=== PATIENT | female | born 1970 | race Caucasian/White ===

== ENCOUNTER → 2022-01-10 10:00 | Outpatient (CLI) | payer OTHER, SELFPAY ==
--- NOTE | 2022-01-10 10:05 | DI.MG.S_ITS ---
BILATERAL DIGITAL SCREENING MAMMOGRAM 3D/2D WITH CAD: 01/10/2022 CLINICAL: Routine screening. Comparison is made to exams dated: 10/21/2013 mammogram, 04/07/2013 mammogram, 04/07/2013, and 04/01/2013 mammogram - [facility]. The tissue of both breasts is heterogeneously dense. This may lower the sensitivity of mammography. Current study was also evaluated with a Computer Aided Detection (CAD) system. There is a stable benign architectural distortion in the left breast in the upper outer quadrant. No significant masses, calcifications, or other findings are seen in either breast. There has been no significant interval change. IMPRESSION: BENIGN There is no mammographic evidence of malignancy. A 1 year screening mammogram is recommended. This exam was interpreted at Station ID: [id number]. NOTE: For mammograms, a report in lay terms will be sent to the patient. Approximately 15% of breast malignancies will not be visualized mammographically. In the management of a palpable breast mass, a negative mammogram must not discourage biopsy of a clinically suspicious lesion. Electronically Signed By: Tj srivastava/edvin:01/10/2022 10:42:52 letter sent: Normal Exam ACR BI-RADS Category 2: Benign Finding(s) 3342F
== END ==
PROVIDERS: Family Provider Chiropractor; Referring Provider Obstetrics & Gynecology; Visit Provider Obstetrics & Gynecology
DX: Z12.31 Encounter for screening mammogram for malignant neoplasm of breast (principal)
CPT/HCPCS: 77063; 77067

== ENCOUNTER 2024-11-01 06:42 | Day surgery (SDC) | payer OTHER, SELFPAY ==
[2024-10-26 15:01] VITALS: BMI 24.4
[2024-11-01] VITALS (18 sets, daily range): BP systolic 103–143; BP diastolic 67–90; PULSE 63–98; RESP 10–20; TEMP 35.5–37.1; O2SAT 90–100; BMI 24.4
--- NOTE | 2024-11-01 | PATH_ITS ---
[facility] Accession Number: [id number] No. of containers..01 Tissue . 01 Material submitted: . uterus - UTERUS WITH BILATERAL FALLOPIAN TUBES AND BILATERAL OVARIES . 01 Diagnosis: UTERUS WITH BILATERAL FALLOPIAN TUBES AND BILATERAL OVARIES, HYSTERECTOMY WITH BILATERAL SALPINGO-OOPHORECTOMY (WEIGHT 42 GRAMS): Cervix with patchy atypia, favor reactive changes. Endocervix with no significant histomorphologic abnormality. Weakly proliferative endometrium; negative for significant atypia. Myometrium involved by adenomyosis. Right fallopian tube, complete cross sections; negative for significant atypia. Right ovary with no significant histomorphologic abnormality. Left fallopian tube, complete cross sections; negative for significant atypia. Left ovary with no significant histomorphologic abnormality. [facility] 11/04/2024 0840 Local . 01 Electronically signed: . Dorina Monroe MD, Pathologist NPI- [id number] . 01 Gross description: . Received in formalin labeled with two patient identifiers and uterus, with bilateral fallopian tubes and bilateral ovaries, is a 5.5 x 3.5 x 2.2 cm (42 grams) uterus with an attached 3.0 x 2.5 x 0.8 cm cervix. The uterine serosa is au-pink and focally hemorrhagic. The right parametrium is inked red, the left parametrium is inked yellow. . The cervix has a 1.5 x 1.1 cm area of slight irregularity and hemorrhage located at the posterior aspect. The remaining cervix is au-white, smooth, glistening, and otherwise unremarkable. There is a 1.1 cm slit-like patent os. The endocervical canal is au, trabeculated, and free of exophytic lesions. The au, smooth, unremarkable myometrium measures up to 1.1 cm in thickness. There is a 3.4 x 1.0 x 0.2 cm au-pink, focally hemorrhagic, smooth, glistening, finely granular endometrial lining. No polyps or masses are appreciated. . The attached right ovary measures 2.4 x 1.1 x 0.5 cm, and has a white lobulated serosal surface. Sectioning of the ovary shows a white, fibrotic, and lobulated homogenous cut surface. The accompanying fimbriated fallopian tube measures 4.8 cm in length and has a 0.3 cm stellate lumen. The left attached ovary measures 2.1 x 0.8 x 0.8 cm and has a white lobulated serosal surface. Sectioning shows a white homogenous fibrotic ovarian parenchyma. The accompanying fimbriated fallopian tube measures 3.8 cm in length by 0.4 cm in diameter, and is sectioned to show a 0.3 cm stellate lumen. . Radiotelegraphist sections are submitted as labeled: A1: Posterior cervix to include granular irregular area. A2: Anterior cervix. A3: Full thickness endomyometrium posterior. A4: Full thickness endomyometrium anterior. A5: Right ovary and fallopian tube to include entire fimbriated end. A6: Left ovary and fallopian tube to include entire fimbriated end. (DC:[id number]/) /JAMIA 11/02/2024 09 Local . 01 Pathologist provided ICD-10: N81.10, N81.4 . 01 CPT . 830439 Specimen Comment: A courtesy copy of this report has been sent to [phone] Performed at: [address] [facility], [place], [place] [id number] MD Justin Cronin MD Phone: [phone]
[2024-11-01] MEDS: ACETAMINOPHEN 325 MG TABLET 975 MG PO (07:22)
[2024-11-01] MEDS: LACTATED RINGERS 1,000 ML 21 ML IV (07:24)
--- NOTE | 2024-11-01 07:28 | PM.PREOP ---
Pre-operative Note Interval Note History & Physical reviewed/Exam performed by Physician: Yes Changes to H&P: No
[2024-11-01] MEDS: SCOPOLAMINE 1 PATCH TOP (07:41)
[2024-11-01] MEDS: CEFAZOLIN 2 GM/100 ML PREMIX 100 ML IV (07:55)
--- NOTE | 2024-11-01 08:21 | SUR.OPER ---
Lithotomy on padded OR bed. Stewardson Pad Positioner under torso. Head on pillow, arms padded and tucked at sides. Legs secured in padded yellow fins stirrups.
[2024-11-01] MEDS: BUPIVACAINE 0.5% W/ EPI (PF) 30 ML VIAL INJ (08:37)
[2024-11-01] MEDS: BUPIVACAINE 0.5% W/ EPI (PF) 10 ML VIAL INJ (08:53)
--- NOTE | 2024-11-01 09:59 | P.OP_ITS ---
Operative Date/Time/Diagnoses Date of procedure: 11/01/24 Time of procedure: 09:59 Pre-op diagnosis: Symptomatic uterovaginal prolapse Post-op diagnosis: same Procedure & Clinicians Procedure: Laparoscopic-assisted vaginal hysterectomy with bilateral salpingo oophorectomy and anterior and posterior repair Same procedure as scheduled: Yes Indications: Symptomatic uterovaginal prolapse Surgeon: Ivana Santoyo Donor Floor Technician: Latonia Barksdale Click Yes if Unassisted: No Anesthesia Type: General Operative Notes Findings: Normal small uterus, normal tubes and ovaries with normal bowel surface, no adhesions, no endometriosis. Cystocele and rectocele with urethral well supported. Closure Type: primary Specimen(s): other (Uterus tubes and ovaries) Applied: catheter (Morris) and other (Vaginal packing) Estimated Blood Loss (mL): 50 Blood products transfused: none Procedure in detail: Operative description: Patient was brought to the operating room where she underwent general anesthesia. [facility]. A check system was reviewed. 2 gram Ancef were in prior to beginning case. Warming was in place. Pulsatile stockings were in place and functional. She was prepped and draped in the usual sterile fashion. A single-tooth tenaculum was placed on the anterior lip of the cervix. The cervix was dilated to #6 Hegar dilator to allow the uterine manipulator to be placed through the cervix into the uterus with the balloon inflated with 3 mL of air. A Morris catheter was placed. Area of the umbilical incision was injected with lidocaine. An incision was made with the scalpel. A 5 mm trocar was placed under direct visualization. No damage with placement of the trocar. 5 mm trochars were placed in the right and left lower quadrant under direct visualization. There did not appear to be any damage with placement of the trochars. The power seal was used to cauterize and cut the infundibulopelvic ligaments bilaterally. Sequential bites were taken down the broad ligament freeing the fallopian tubes and ovaries bilaterally. Bites were taken down the broad ligament and an anterior bladder flap was developed. Next the procedure was switched to a vaginal approach. A single-tooth tenaculum was placed on the posterior lip of the cervix and a posterior colpotomy incision was made. The uterosacral ligaments were clamped, cut, and ligated with 0 Vicryl suture which was used throughout the rest the case unless otherwise indicated. The cervix was circumscribed with the scalpel. The bladder pillars were clamped cut and ligated. Using sharp and blunt dissection the bladder was pushed away from the cervix. Sequential bites were taken up the cardinal and broad ligaments. An anterior colpotomy incision was made and the bladder held away from the uterus. The uterus tubes and ovaries were removed vaginally. Adequate hemostasis noted. A dilute solution of 0.25% Marcaine with epinephrine was injected over this cystocele. An incision was made over the cystocele and the incision dissected laterally. Plicating sutures were made over the cystocele. The incision was closed with 2-0 Vicryl suture. No vaginal tissue was removed. The vaginal cuff was closed with [id number] sutures of 0 Vicryl suture. Next a wedge shaped tissue was taken out of the posterior vaginal opening. The area over the rectocele was injected with a dilute solution of 0.25% Marcaine with epinephrine. An incision was made over the rectocele with the scalpel. The dissection was undertaken laterally. 0 Vicryl suture was used to plicate over the rectocele. A finger was placed in the rectum to be sure there were no sutures placed through the rectal mucosa. The vaginal incision was closed with 2-0 Vicryl suture. No vaginal tissue was removed. The perineal body was built up with interrupted 0 Vicryl sutures. The skin was closed with the 2-0 Vicryl suture. Vaginal packing was placed in the vagina and the Morris left in place. The abdomen was reinsufflated and adequate hemostasis was noted. The CO2 was allowed to escape from the abdomen and the trochars were removed. The skin was closed with 4-0 Monocryl. Counts of instruments and sponges were correct. Patient went to recovery room in good condition. Complications: none Post-operative Condition: stable Disposition: Acute Care Plan for aftercare: Remove vaginal packing and Morris later this evening
--- NOTE | 2024-11-01 11:44 | PC.NURSE ---
Addendum entered by Shannan Georges R.N. 11/01/24 18:53: Patient just voided 100cc of bloody urine out. Did PVR and she had 411cc of urine left in bladder. Called , she states if there is more than a 100cc after she voids in an hour, then we need to put the campo back in. Addendum entered by Shannan Georges R.N. 11/01/24 17:41: into see patient around 1730 and took patients vaginal packing out and campo catheter that had 1000cc of yellow urine. Small amount of dark blood on packing. Patient is comfortable and eating dinner. Addendum entered by Shannan Georges R.N. 11/01/24 15:14: Patient given iv toradol for discomfort, she was also given some pruine juice and is resting comfortably. Original Note: Patients temp was 95.9 when she came up to the floor and we put warm blankets on her and it is up to 96.9 now. Patient is groggy but wakes up. She was experiencing some heaviness in her lower abdominal area, but is groggy and falling asleep easily. Patient has 3 small lap sites that are durmobonded and she has packing in her vagina with a campo catheter inserted. Her is at bedside now. Patients blood sugar 122. She takes semiglutide and meformin, so she is controlled with medication. BS checked once at lunch.
[2024-11-01] MEDS: LACTATED RINGERS 1,000 ML 100 ML IV ×2 (12:26→20:34)
[2024-11-01] MEDS: ACETAMINOPHEN 325 MG TABLET 650 MG PO ×2 (12:27→18:58)
[2024-11-01 13:48] LABS: Estimated Glomerular Filt Rate > 60 mL/min (>60)
[2024-11-01] MEDS: KETOROLAC 30 MG/ML VIAL IV ×2 (14:45→20:29)
--- NOTE | 2024-11-01 17:31 | P.PN_ITS ---
Subjective Subjective Date Patient Seen: 11/01/24 Time Patient Seen: 17:31 Interval history: Patient is status post LAVH/BSO, anterior-posterior repair. Patient denies nausea. Her pain is not under good control but is hopeful once her catheter is removed and she can move around that her back will be less uncomfortable. Exam Vital Signs (past 8 hours): - 11/01/24 10:06 11/01/24 10:10 11/01/24 10:14 Temperature 96.9 F L Pulse Rate 80 84 75 Respiratory Rate 13 14 11 L Blood Pressure 104/67 103/68 120/78 Pulse Oximetry 90 L 90 L 96 Oxygen Delivery Method Nasal Cannula Nasal Cannula Nasal Cannula Oxygen Flow Rate 4 4 4 11/01/24 10:19 11/01/24 10:24 11/01/24 10:29 Temperature Pulse Rate 78 73 72 Respiratory Rate 12 11 L 13 Blood Pressure 119/83 127/88 119/85 Pulse Oximetry 93 95 92 Oxygen Delivery Method Nasal Cannula Nasal Cannula Room Air Oxygen Flow Rate 11/01/24 10:36 11/01/24 10:45 11/01/24 11:05 Temperature 97.1 F L Pulse Rate 98 H 75 69 Respiratory Rate 11 L 10 L 14 Blood Pressure 130/89 132/87 140/85 Pulse Oximetry 93 93 95 Oxygen Delivery Method Room Air Oxygen Flow Rate 0 11/01/24 11:33 11/01/24 11:35 11/01/24 11:37 Temperature 96.9 F L 95.9 F L Pulse Rate 69 63 Respiratory Rate 12 12 Blood Pressure 131/90 143/86 H Pulse Oximetry 96 94 Oxygen Delivery Method Oxygen Flow Rate 0 0 11/01/24 12:05 11/01/24 14:45 11/01/24 15:02 Temperature 97.5 F L 97.5 F L Pulse Rate 68 85 Respiratory Rate 14 14 Blood Pressure 122/77 133/71 Pulse Oximetry 95 97 Oxygen Delivery Method Oxygen Flow Rate 0 0 Oxygen Delivery Method Room Air Oxygen Flow Rate 0 Narrative Exam Narrative: Abdominal incisions intact without bleeding. Morris removed. Vaginal packing removed with some blood but not soaked. Objective Labs 11/01/24 13:30 Labs: Laboratory Results - last 24 hr 11/01/24 13:30 Creatinine 0.95 Estimated GFR > 60 [facility] Medical History (Updated 10/18/24 @ 16:54 by Ivana Santoyo MD) Fractures Essential thrombocytosis Hemorrhoid Felicity's disease Leukemia (~2007) Hypothyroidism Surgical History (Updated 11/01/24 @ 09:54 by Ivana Santoyo MD) Anesthesia History of discectomy (~2014) Family History (Updated 04/02/22 @ 22:53 by Idalia Bull) Father Osteoporosis Bone spur Diabetes mellitus Hyperlipidemia Hypertension Sister Diabetes mellitus Hypertension Thyroid disease Hyperlipidemia Sister Ear problem Social History household members: spouse Smoking Status: Never smoker alcohol intake: current Assessment & Plan Post-op Postoperative Procedures: Procedures Operation Date: 11/01/24 07:45 Actual Procedure Side Surgeon p Laparoscopic Assisted Vaginal Hysterectomy with bilateral salpingectomies and bilateral oophrectomies Ivana Santoyo MD s Anterior/Posterior Repair Ivana Santoyo MD Postoperative day: 0 Postoperative status: marginal pain control Postoperative plan: routine post-op care Postoperative plan narrative: Confirm patient able to urinate after removal of the Morris catheter. Home in a.m. if stable. Time Spent With Patient Time with patient: less than 15 minutes Quality VTE Deep Vein Thrombosis/Pulmonary Embolism Present on Admission: No
[2024-11-01] MEDS: DOCUSATE 100 MG CAPSULE 200 MG PO (20:28)
[2024-11-02] MEDS: ACETAMINOPHEN 325 MG TABLET 650 MG PO ×3 (02:09→11:06)
[2024-11-02] MEDS: KETOROLAC 30 MG/ML VIAL IV (02:10)
[2024-11-02 06:04] LABS: Add Manual Diff / Slide Review NO; Basophils Absolute Auto 0 /uL (0-100); Basophils Percent Auto 0.1 % (0-2); Eosinophils Absolute Auto 0 /uL (0-450); Hematocrit 38.8 % (36-46); Hemoglobin 12.7 g/dL (12.0-16.0); Lymphocytes Absolute Auto 1100 /uL (1100-4500); Lymphocytes Percent Auto 8.9 % (25-40); Mean Corpuscular HGB Conc 32.8 % (30-36); Mean Corpuscular Hemoglobin 27.4 PG (26-34); Mean Corpuscular Volume 83.5 fL (80-100); Monocytes Absolute Auto 700 /uL (0-900); Monocytes Percent Auto 5.2 % (3-14); Neutrophils Absolute Auto 10800 /uL (1500-7000); Neutrophils Percent Auto 85.8 % (50-75); Platelet Count 215 X10^3/uL (150-400); Red Blood Cell Count 4.65 X10^6/uL (4.0-5.2); Red Cell Distribution Width 13.8 % (11.6-14.8); White Blood Cell Count 12.6 X10^3/uL (4.5-11.0)
[2024-11-02 07:00] VITALS: BP 127/77; PULSE 62; RESP 18; TEMP 36.3; O2SAT 92
--- NOTE | 2024-11-02 07:50 | PM.DS.IH.1 ---
History of Present Illness History of Present Illness Date Patient Seen: 11/02/24 Time Patient Seen: 07:50 Date of Onset of Symptoms: 11/01/24 Chief complaint: OPB Narrative: Patient underwent a laparoscopic-assisted vaginal hysterectomy with bilateral salpingo oophorectomy with anterior-posterior repair on 11/01/2024. Discharge Providers Provider Date of admission: 11/01/24 Discharge Date: 11/02/24 Primary care physician: Rubén Pickard ND Discharge provider: Ivana Santoyo MD Summary Hospital Course Discharge Diagnosis: Symptomatic uterovaginal prolapse Hospital Course: Patient underwent a laparoscopic-assisted vaginal hysterectomy with bilateral salpingo oophorectomy with anterior-posterior repair on 11/01/2024. Patient is not nauseated. She has central lower abdominal cramping and discomfort. She is able to urinate. She is ambulatory. Status at Discharge Cognitive/behavioral status at discharge: oriented Functional status at discharge: independent ambulation Overall status at discharge: patient is progressing back to baseline Time Spent with Patient Time spent: Less than 30 minutes Exam Vital Signs (past 8 hours): Oxygen Delivery Method Room Air Oxygen Flow Rate 0 Narrative Exam Narrative: Abdomen is soft, with minimal tenderness. Incisions are clean, dry, intact. Minimal vaginal bleeding. Extremities without edema and nontender Objective Labs 11/02/24 05:30 11/01/24 13:30 Labs: Laboratory Results - last 24 hr 11/01/24 11/02/24 13:30 05:30 WBC 12.6 H RBC 4.65 Hgb 12.7 Hct 38.8 MCV 83.5 MCH 27.4 MCHC 32.8 RDW 13.8 Plt Count 215 Neut % (Auto) 85.8 H Lymph % (Auto) 8.9 L [place] % (Auto) 5.2 Eos % (Auto) 0.0 L Baso % (Auto) 0.1 Neut # (Auto) 17647 H Lymph # (Auto) 1100 [place] # (Auto) 700 Eos # (Auto) 0 Baso # (Auto) 0 Creatinine 0.95 Estimated GFR > 60 PFSH Medical History (Updated 11/02/24 @ 05:59 by Maryanne Alexander RN) Fractures Hemorrhoid Felicity's disease Hypothyroidism Surgical History (Updated 11/01/24 @ 09:54 by Ivana Santoyo MD) Anesthesia History of discectomy (~2015) Family History (Updated 11/02/24 @ 06:02 by Maryanne Alexander RN) Father Osteoporosis Bone spur Hypertension Sister No problems noted. Sister Ear problem Mother Diabetes mellitus Hyperlipidemia Hypertension Osteoporosis Thyroid disease Social History household members: spouse Smoking Status: Never smoker alcohol intake: current Discharge Assessment & Plan Assessment and Plan Assessment: Postop laparoscopic-assisted vaginal hysterectomy with bilateral salpingo-oophorectomy and anterior-posterior repair who is stable. Plan of Treatment: Discharge home. Patient will be contacted in 2 weeks by telehealth and has a 6 week postop appointment scheduled. Precautions reviewed with the patient to call for fevers, pain that is not controllable, difficulty urinating, bleeding concerns. Discharge Plan Discharge Plan Patient Disposition: Home Discharge orders & Medications Discharge Orders: Discharge (Order); Ordered 11/02/24 Ordered By: Ivana Santoyo Prescriptions: Continued CMP Estradiol Vag Pearls 10mcg See Rx Instructions .ROUTE .COMPLEX Qty: 30 3RF Rx Instructions: Insert one vaginal christine QHS x14 days and then 2x per week after that; Levo-Rafa Thyroid compound 1 tab PO DAILY metformin 500 mg tablet 500 mg PO DAILY semaglutide (weight loss) 0.25 mg/0.5 mL pen injector 0.25 mg SUBCUT QWEEK Rx Instructions: administer weeks 1 through 4 of therapy bupropion HCl 150 mg tablet sustained-release 12 hr 150 mg PO DAILY Follow up/Referrals: Rubén Pickard ND [Primary Care Provider] - Ivana Santoyo MD [Physician] - (Patient has a telehealth appointment scheduled in [address] Vela and a follow-up appointment in 6 weeks) Diet/Activity/Treatments Diet: Regular Skin/Wound/Dressing Care Report to your healthcare provider any signs of infection, such as:: chills, fever, increased pain and unusual redness Visit Report/Discharge Packet Instructions: DI for Hysterectomy, DI for Laparoscopy Stand Alone Forms: Patient Portal/API, Surgery Discharge Discharge Data Primary Care Provider: Rubén Pickard Attending Provider: Ivana Santoyo Quality VTE Deep Vein Thrombosis/Pulmonary Embolism Present on Admission: No IH PROFEE Charge Codes Discharge inpatient/observation: [id number]
[2024-11-02] MEDS: DOCUSATE 100 MG CAPSULE 200 MG PO (08:43)
[2024-11-02] MEDS: OXYCODONE IR 5 MG TABLET PO (11:05)
--- NOTE | 2024-11-02 11:37 | PC.NURSE ---
Patient is A&OX4, VSS, afebrile on RA. Patient is cleared for discharge this a.m. home with . She tolerates breakfast well, voids and is able to ambulate around the room/ bathroom slowly. Incision sites to abdomen c/d/i, dermabond KITCHEN DESIGNER.She verbalizes understanding of discharge activity limitations, site care, s/sx of infections or severe bleeding, as well aw medications and follow up appointments. She is escorted via w/ch by RN to private vehicle via w/ch this a.m. at 11:25 a.m. for discharge home this with all of her personal belongings.
--- NOTE | 2024-11-02 12:15 | CM.DANOTE ---
Initial DCP Assessment Visit Note Reviewed EMR and team rounds for status updates. Met with pt/spouse at bedside to introduce self and role, pt was found to be very somnolent, however was easily arousable to answer questions and discuss home d/c plan. Pt lives independently at baseline with her spouse in their own home in Friday. She has been medically discharged, and spouse will be transporting her home. They deny any CM assistance/resource needs at this time. Payor: [facility] Attending: Dr. Santoyo Pt is a 54 year-old F post-op day 1 from a laparoscopic-assisted vaginal hysterectomy with bilateral salpingo oophorectomy. She has a hx a utervaginal prolapse and cystocele. She did well postoperatively and will f/u OP with Dr. Santoyo. No further needs indicated at this time. Discharge Planning/Care Management Advanced directive, confirm from FAMILY Start: 11/01/24 11:15 Freq: Q24H Status: Discharge Protocol: Document 11/01/24 11:18 CLL (Rec: 11/01/24 11:21 CLL [id number]) Advance Directive, confirm on record Time 11:18 Person contacted patient Copy received No CM Discharge Assessment Start: 11/02/24 12:08 Freq: Status: Active Protocol: Document 11/02/24 12:08 DPL (Rec: 11/02/24 12:15 DPL [id number]) Discharge Planning Assessment Assigned Vacation Sales Advisor MUNA Curtis Advance Directives? Yes Advance Directives on File No History Provided By Patient,Significant Other, Medical Record Has Patient been admitted in last 30 No days? Prior Living Arrangements House Household Members spouse Type of transporation used prior to Drives own vehicle admit Independent with ADL's Yes Is patient alert and oriented? Yes Comment N/A Caregiver for Another No Comment N/A Discharge Plan Home Transportation Arrangement Spouse Referrals Initiated None needed Whiteboard Updated in Patient Room with Yes name and ext. # of Vacation Sales Advisor Review Status In Process Please Provide Date Initial DC 11/02/24 Assessment Was Performed Pre-Anesthesia Assessment Start: 10/26/24 15:01 Freq: Status: Complete Protocol: Document 10/26/24 15:01 CAB (Rec: 10/26/24 15:16 CAB [id number]) Pre-Anesthesia Assessment PAC Comment Chart review 10/26/24 Patient Information Reviewed Via Chart Review Primary Care Provider Tito Palmer Seen Specialist in Last 12 Months Yes Specialist Seen Professor In Family Studies Primary Language Thai Final Armature Tester Required No Height 170.18 cm Weight 70.76 kg Body Mass Index (BMI) 24.4 Anesthesia Review Requested No Medical Delivery Driver No Smoking Status Never smoker Pain Present Pain Reported Comment Dyspareunia, pelvic/abdominal pain History of Falling (Recent or History of No ) Patient is completely paralyzed or No completely immobile Mental Status Oriented to own ability Is patient on oxygen? No Hx Sleep Apnea No Currently Taking a Beta Ryan No Anti-Coagulant Therapy No Cardiac Testing No Hx Pacemaker/ICD No Pacemaker Rep Required? No Cardiac Clearance Received No Urinary Catheter Present No Hx Urinary Self Catheterization No Diabetes No Patient No Lactating No Marital Status Lives With spouse Patient Discharge Plan Description Return Home Comment Lives on [facility]
== END 2024-11-02 11:25 | disposition home or self-care (01) ==
LOC: OR 06:42 → AC 10:53
PROVIDERS: Family Provider Chiropractor; PCP Naturopath; Referring Provider Specialist; Visit Provider Specialist
PROC: 0UT9FZZ Resection of Uterus, Via Natural or Artificial Opening With Percutaneous Endoscopic Assistance (ICD-10-PCS; CPT 58552; principal; 2024-11-01 07:45)
PROC: (CPT 58552; 2024-11-01 07:45)
DX: N81.3 Complete uterovaginal prolapse (principal); E03.9 Hypothyroidism, unspecified; R73.03 Prediabetes
CPT/HCPCS: 58552; 57260; 36415; 82565; 82962; 85025; J0690; J1100; J1171; J1885; J2250; J2704; J3010

== ENCOUNTER 2025-04-25 08:50 | Day surgery (SDC) | payer OTHER, SELFPAY ==
[2025-03-21 11:42] VITALS: BMI 24.4
[2025-04-20 10:44] VITALS: BMI 25.0
[2025-04-25] VITALS (11 sets, daily range): BP systolic 99–119; BP diastolic 55–79; PULSE 62–72; RESP 12–16; TEMP 36.1–36.5; O2SAT 95–100; BMI 25.8
[2025-04-25] MEDS: ACETAMINOPHEN 325 MG TABLET 975 MG PO (09:38)
[2025-04-25] MEDS: FAMOTIDINE 20 MG/2 ML VIAL IV (09:57)
[2025-04-25] MEDS: LACTATED RINGERS 1,000 ML 42 ML IV ×2 (09:57→11:53)
--- NOTE | 2025-04-25 10:02 | PM.GYNHP.1 ---
History of Present Illness History of Present Illness Reason for admission: pelvic pain Narrative: Leti Dasilva is a 55 year old female 1 para 1 with a tight band at the left introitus following surgery, and a right vaginal mass. She presents today for release of band at the left introitus and excision of a right vaginal mass. [facility] Medical History (Updated 04/20/25 @ 10:50 by Ketty Caro, RN) Pre-diabetes Anxiety GERD (gastroesophageal reflux disease) Fractures Hemorrhoid Felicity's disease Hypothyroidism Surgical History (Updated 04/20/25 @ 10:56 by Ketty Caro, RN) Status post laparoscopic assisted vaginal hysterectomy (LAVH) (11/01/24) Anesthesia History of discectomy (~2014) Family History (Updated 11/02/24 @ 06:02 by Maryanne Alexander RN) Father Osteoporosis Bone spur Hypertension Sister No problems noted. Sister Ear problem Mother Diabetes mellitus Hyperlipidemia Hypertension Osteoporosis Thyroid disease Social History household members: spouse Smoking Status: Never smoker alcohol intake: current Meds Home Medications and Allergies Home Medications ?Medication ?Instructions ?Recorded ?Confirmed ?Type Levo-Rafa Thyroid compound 1 tab PO DAILY 01/10/22 04/25/25 History metformin 500 mg tablet 500 mg PO DAILY 01/10/22 04/25/25 History semaglutide (weight loss) 0.25 0.25 mg SUBCUT QWEEK 10/18/24 04/25/25 History mg/0.5 mL subcutaneous pen injector bupropion HCl 150 mg tablet,12 hr 150 mg PO DAILY 11/01/24 04/25/25 History sustained-release estradiol 0.025 mg/24 hr 1 patch transdermal 2XW #8 ea 12/09/24 04/25/25 Rx semiweekly transdermal patch (Rowena) estradiol 0.01% (0.1 mg/gram) 0.5 g vaginal 2XW #42.5 grams 04/12/25 04/25/25 Rx vaginal cream (Estrace) Allergies Allergy/AdvReac Type Severity Reaction Status Date / Time No Known Drug Allergies Allergy Verified 04/25/25 09:20 Exam Vital Signs (past 8 hours): - 04/25/25 09:58 Temperature 97.4 F L Pulse Rate 62 Respiratory Rate 16 Blood Pressure 115/70 Pulse Oximetry 100 Oxygen Delivery Method Room Air Oxygen Delivery Method Room Air Narrative Exam Narrative: HEENT: No thyromegaly, no anterior cervical or supraclavicular lymphadenopathy. Lungs:Clear to auscultation bilaterally, no wheezes. Cardiovascular: Regular rate and rhythm, no murmurs, rubs, or gallops. Abdomen: Well-healed scars. No hepatosplenomegaly. No masses palpable. External genitalia: Normal Vagina: Tight band at the left introitus. Mass of the right posterior wall of the vagina Cervix: Absent Extremities: No edema Objective Labs Labs: Laboratory Results - last 24 hr 04/25/25 09:37 POC Whole Bld Glucose 97 Assessment & Plan Assessment & Plan narrative: Assessment: 55-year-old 1 para 1 with a tight band at the left introitus and a right posterior wall vaginal mass Plan: Release of band at left introitus and excision of right posterior vaginal wall mass The risks, benefits, and alternatives of the procedure were explained to the patient. The risks including bleeding and infection. She understands these risks and agrees to proceed. A full par Q was held and consent form was signed. Time-Based Coding :: [TOTAL MINUTES] spent with patient and on the chart (including review of chart, obtaining history, exam, reviewing outside data, placing orders, documenting exam and treatment plan, and counseling patient) on [DATE].
--- NOTE | 2025-04-25 10:05 | PM.PREOP ---
Pre-operative Note Interval Note History & Physical reviewed/Exam performed by Physician: Yes Changes to H&P: No H&P completed within 30 days and has changed as indicated here:: 04/25/25
--- NOTE | 2025-04-25 10:22 | SUR.OPER ---
Lithotomy on padded OR bed, head on pillow, arms secured on padded arm boards at <90 degrees abduction. Legs secured in padded yellow fins stirrups.
[2025-04-25] MEDS: BUPIVACAINE 0.5% W/ EPI (PF) 30 ML VIAL INJ (10:45)
--- NOTE | 2025-04-25 11:48 | P.OP_ITS ---
Operative Date/Time/Diagnoses Date of procedure: 04/25/25 Time of procedure: 11:48 Pre-op diagnosis: Posterior vaginal mass Tight band at left introitus Post-op diagnosis: same Procedure & Clinicians Procedure: Procedures Operation Date: 04/25/25 10:15 Actual Procedure Side Surgeon p release of tight band left introitus, REVISION OF ANTERIOR REPAIR Not Ap plicable Flro Vela MD Indications: 55 year old with a posterior vaginal mass and a tight band at the left introitus Surgeon: Flor Vela Anesthesia Type: General and Local Operative Notes Findings: Small posterior defect in the rectocele, 3cm Tight band at the left introitus Closure Type: primary Specimen(s): none Applied: none Estimated blood loss (mL): 10 Blood products transfused: none Procedure in detail: After informed consent was obtained, the patient was taken to the operating room where she was placed in the dorsal supine position. After adequate general endotracheal anesthesia was achieved, the patient was placed in the dorsal lithotomy position, and prepped and draped in the usual sterile fashion. A time-out was performed. On the posterior vaginal wall there was a mass in the mid to right side measuring 3 cm x 1-1/2 cm. A glove was changed and a rectal exam was performed and this was found to be a small posterior defect. Allis clamps were placed at the distal and proximal ends of the defect. 10 cc of 0.25% Marcaine with epinephrine were injected submucosally. An incision was made vertically between the 2 Allis clamps. The underlying fascia was dissected off of the mucosa. Three vertical mattress sutures were placed to close the fascial defect. The excess vaginal mucosa was excised. The mucosa was closed with a series of simple interrupted sutures with 2-0 Vicryl. Hemostasis was achieved. At the right edge there were some small papillary mucosal growth. The 1 on the right was removed with the Bovie. The 1 on the left was excised and 2 simple interrupted sutures with 2-0 chromic were placed to reapproximate the mucosa. Sponge, lap, and instrument counts were correct x2. The patient tolerated the procedure well, and was taken to PACU in stable condition. Complications: none Post-operative Condition: stable Disposition: PACU Plan for aftercare: Home after recovery
[2025-04-25] MEDS: ONDANSETRON 4 MG/2 ML INJ IV (11:56)
[2025-04-25] MEDS: OXYCODONE IR 5 MG TABLET PO (11:56)
--- NOTE | 2025-04-25 12:51 | SUR.PHASEII ---
Patient used the bathroom and had a large amount of bleeding. She has peripad in place that is moderately saturated after leaving the bathroom and going back to her stretcher. Dr Vela notified and will come see patient.
== END 2025-04-25 13:06 | disposition home or self-care (01) ==
PROVIDERS: Family Provider Chiropractor; PCP Naturopath; Referring Provider Obstetrics & Gynecology; Visit Provider Obstetrics & Gynecology
PROC: (CPT 57250; principal; 2025-04-25 10:15)
DX: N89.8 Other specified noninflammatory disorders of vagina (principal); N81.6 Rectocele
CPT/HCPCS: 57250; 56441; 82962; J0330; J1100; J1885; J2250; J2405; J2704; J3010